=== PATIENT | female | born 1995 | race Caucasian/White ===

== ENCOUNTER → 2019-06-19 | Outpatient (CLI) | payer BC, MEDICAID ==
--- NOTE | 2019-06-19 12:37 | Diagnostic Imaging Report ---
INDICATION: dating. FINDINGS: The uterus measures 7.8 x 2.6 x 4.2 cm. Endometrium is 11 mm in thickness. No myometrial mass is seen. There is no evidence of intrauterine gestational sac. Adnexal evaluation demonstrates both ovaries to contain follicles. There is a left ovarian cyst measuring 13 mm in size. There is blood flow to both ovaries. Trace free fluid in the endocervical and endometrial canal is noted. No free fluid in the pelvis is seen. IMPRESSION: No evidence of intrauterine or ectopic . There is a small left ovarian cyst. Dictated by: Dictated on workstation # [id number]
== END ==
LOC: RAD 09:41
PROVIDERS: ATTEND Family Medicine
DX: Z34.90 Encounter for supervision of normal pregnancy, unspecified, unspecified trimester (principal); Z3A.00 Weeks of gestation of pregnancy not specified
CPT/HCPCS: 76801; 76817

== ENCOUNTER → 2019-09-22 | Outpatient (CLI) | payer BC ==
--- NOTE | 2019-09-22 11:09 | Diagnostic Imaging Report ---
INDICATION: dating. FINDINGS: Uterus measures 7.0 x 4.2 x 5.1 cm. There is an intrauterine gestational sac containing a pole. [place]-rump length measurement is consistent with approximately 6 weeks 5 days gestation. heart rate was recorded at 126 bpm. No genet-gestational sac hemorrhage is detected. Left adnexa is unremarkable. Right adnexa does demonstrate 2.9 x 2.3 cm cyst involving the right ovary. There is no free fluid. IMPRESSION: 1. Single live IUP of approximately 6 weeks 5 days gestational age. Estimated date of confinement sonographically is 05/12/2020. 2. 2.9 cm right ovarian cyst. Dictated by: Dictated on workstation # [id number]
== END ==
LOC: RAD 09:42
PROVIDERS: ATTEND Family Medicine
DX: Z36.9 Encounter for antenatal screening, unspecified (principal); Z3A.01 Less than 8 weeks gestation of pregnancy
CPT/HCPCS: 76801; 76817

== ENCOUNTER 2019-11-19 17:51 | Emergency (ER) | payer BC ==
[~2019-11-19] VITALS: Ht 160 cm; Wt 83.0 kg
[2019-11-19 17:57] VITALS: BP 140/58
--- OUTSIDE RECORDS SUMMARY | 2019-11-19 17:57 | XMS REPORT ---
Author Author Karine Rodriguez Doctor Organization [facility] Address Unknown Phone Unavailable Care Team Providers Care Manager Field Investigations Name Role Phone Migration, Doctor Unavailable Unavailable PROBLEMS Type Condition ICD9-CM Code WCO76-ST Code Onset Dates Condition S tatus SNOMED Code Problem Unspecified pruritic disorder 698.9 Active 244497313 Problem Scabies 133.0 Active 318570844 ALLERGIES No Information ENCOUNTERS Encounter Location Date Diagnosis [facility] [address] [facility] [id number] [address] [place] [phone] Oct, [facility] [address] [facility] [id number] [address] [place] [phone] Oct, [facility] [address] [id number] [address] [place] [phone] Mar, [facility] [address] [id number] [address] [place] [phone] Dec, [facility] [address] [facility] [id number] [address] [place] [phone] Oct, [facility] [address] [facility] [id number] [address] [place] [phone] Jul, [facility] [address] [id number] [address] [place] [phone] May, [facility] [address] [id number] [address] [place] [phone] May, [facility] [address] [facility] [id number] [address] [place] [phone] May, [facility] [address] [facility] [id number] [address] [place] [phone] Apr, [facility] [address] [facility] [id number] [address] [place] [phone] Apr, [facility] [address] [facility] [id number] [address] [place] [phone] Apr, [facility] [address] [facility] [id number] [address] [place] [phone] Apr, [facility] [address] [facility] [id number] [address] [place] [phone] Feb, IMMUNIZATIONS No Known Immunizations SOCIAL HISTORY Never Assessed REASON FOR VISIT [facility] PLAN OF CARE VITAL SIGNS MEDICATIONS Medication Instructions Dosage Frequency Start Date End Date Duration S tatus Elimite 5 % apply from head to s oles of feet by Topical route once 1 time per week leave on for 8-14 hours and then wash thoroughly for 2 dose(s) Oct, Active Ranitidine HCl 150 mg 1 tablet by Oral route 2 times per day Mar, Active Loratadine 10 mg 1 tablet by Oral rou te 1 time per day for itching or allergy sx Mar, Active Medrol 4 mg 84 mg by Oral route 1 time per day as directed Mar, Active RESULTS No Results PROCEDURES No Known procedures INSTRUCTIONS MEDICATIONS ADMINISTERED No Known Medications
--- OUTSIDE RECORDS SUMMARY | 2019-11-19 17:57 | XMS REPORT ---
Author Author Karine Rodriguez Doctor Organization [facility] Address Unknown Phone Unavailable Care Team Providers Care Cement Fittings Maker Name Role Phone Migration, Doctor Unavailable Unavailable PROBLEMS Type Condition ICD9-CM Code ETL79-LT Code Onset Dates Condition S tatus SNOMED Code Problem Unspecified pruritic disorder 698.9 Active 721831025 Problem Scabies 133.0 Active 242439385 ALLERGIES No Information ENCOUNTERS Encounter Location Date Diagnosis [facility] [address] [id number] [address] [place] [phone] Oct, [facility] [address] [id number] [address] [place] [phone] Oct, [facility] [address] [id number] [address] [place] [phone] Mar, [facility] [address] [id number] [address] [place] [phone] Dec, [facility] [address] [id number] [address] [place] [phone] Oct, [facility] [address] [id number] [address] [place] [phone] Jul, [facility] [address] [id number] [address] [place] [phone] May, [facility] [address] [id number] [address] [place] [phone] May, [facility] [address] [id number] [address] [place] [phone] May, [facility] [address] [id number] [address] [place] [phone] Apr, [facility] [address] [id number] [address] [place] [phone] Apr, [facility] [address] [id number] [address] [place] [phone] Apr, [facility] [address] [id number] [address] [place] [phone] Apr, [facility] [address] [id number] [address] [place] [phone] Feb, IMMUNIZATIONS No Known Immunizations SOCIAL HISTORY Never Assessed REASON FOR VISIT PLAN OF CARE VITAL SIGNS Height 64 in 2012-01-02 Weight 148.19 lbs 2012-01-02 Temperature 98.1 degrees Fahrenheit 2012-01-02 Heart Rate 84 bpm 2012-01-02 Respiratory Rate 16 2012-01-02 Blood pressure systolic 106 mmHg 2012-01-02 Blood pressure diastolic 64 mmHg 2012-01-02 MEDICATIONS Unknown Medications RESULTS No Results PROCEDURES No Known procedures INSTRUCTIONS MEDICATIONS ADMINISTERED No Known Medications
--- OUTSIDE RECORDS SUMMARY | 2019-11-19 17:57 | XMS REPORT ---
Author Author Karine Rodriguez Doctor Organization [facility] Address Unknown Phone Unavailable Care Team Providers Care Can Bander Operator Name Role Phone Migration, Doctor Unavailable Unavailable PROBLEMS Type Condition ICD9-CM Code WFX79-BD Code Onset Dates Condition S tatus SNOMED Code Problem Unspecified pruritic disorder 698.9 Active 407986575 Problem Scabies 133.0 Active 424132521 ALLERGIES No Information ENCOUNTERS Encounter Location Date Diagnosis [facility] [place] [address] [facility] [id number] [address] [place] [phone] Oct, [facility] [place] [address] [facility] [id number] [address] [place] [phone] Oct, [facility] [place] [address] [id number] [address] [place] [phone] Mar, [facility] [place] [address] [id number] [address] [place] [phone] Dec, [facility] [place] [address] [facility] [id number] [address] [place] [phone] Oct, [facility] [place] [address] [facility] [id number] [address] [place] [phone] Jul, [facility] [place] [address] [id number] [address] [place] [phone] May, [facility] [place] [address] [id number] [address] [place] [phone] May, [facility] [place] [address] [facility] [id number] [address] [place] [phone] May, [facility] [place] [address] [facility] [id number] [address] [place] [phone] Apr, [facility] [place] [address] [facility] [id number] [address] [place] [phone] Apr, [facility] [place] [address] [facility] [id number] [address] [place] [phone] Apr, [facility] [place] [address] [facility] [id number] [address] [place] [phone] Apr, [facility] [place] [address] [facility] [id number] [address] [place] [phone] Feb, IMMUNIZATIONS No Known Immunizations SOCIAL HISTORY Never Assessed REASON FOR VISIT [facility] [place] OF CARE VITAL SIGNS MEDICATIONS Unknown Medications RESULTS No Results PROCEDURES No Known procedures INSTRUCTIONS MEDICATIONS ADMINISTERED No Known Medications
--- OUTSIDE RECORDS SUMMARY | 2019-11-19 17:57 | XMS REPORT | Continuity of Care Document ---
Author Organization Unknown Address Unknown Phone Unavailable Allergies There is no data. Medications There is no data. Problems Date Dx Coded Attending Type Code Diagnosis Diagnosed By 06/20/2019 STUART AYALA MD, Ot Z34. 90 ENCNTR FOR SUPRVSN OF NORMAL , 06/20/2019 STUART AYALA MD, Ot Z3A. 00 WEEKS OF GESTATION OF NOT SPEC 07/06/2019 STUART AYALA MD, Ot Z34. 90 ENCNTR FOR SUPRVSN OF NORMAL , 07/06/2019 STUART AYALA MD, Ot Z3A. 00 WEEKS OF GESTATION OF NOT SPEC 09/27/2019 STUART AYALA MD, Ot Z36. 9 ENCOUNTER FOR SCREENING, UNSPE 09/27/2019 STUART AYALA MD, Ot Z3A. 01 LESS THAN 8 WEEKS GESTATION OF 10/09/2019 STUART AYALA MD, Ot Z36. 9 ENCOUNTER FOR SCREENING, UNSPE 10/09/2019 STUART AYALA MD, Ot3A. 01 LESS THAN 8 WEEKS GESTATION OF 10/30/2019 STUART AYALA MD, Ot Z34. 90 ENCNTR FOR SUPRVSN OF NORMAL , 10/30/2019 STUART AYALA MD, Ot Z3A. 00 WEEKS OF GESTATION OF NOT SPEC 10/30/2019 STUART AYALA MD, Ot Z36. 9 ENCOUNTER FOR SCREENING, UNSPE 10/30/2019 STUART AYALA MD, Ot Z3A. 01 LESS THAN 8 WEEKS GESTATION OF Procedures There is no data. Results There is no data. Encounters ACCT No. Visit Date/Time Discharge Status Pt. Type Provider Facility Loc./Unit Complaint [id number] 09/22/2019 10:00:00 020 23:59:59 [facility] Outpatient STUART AYALA MD [facility] DATING [id number] 06/19/2019 09:41:00 019 23:59:59 [facility] Outpatient [facility] TYLER, STUART [facility] RAD DATING
--- OUTSIDE RECORDS SUMMARY | 2019-11-19 17:57 | XMS REPORT ---
Author Author Karine Rodriguez Doctor Organization [facility] Address Unknown Phone Unavailable Care Team Providers Care Transit Planning Manager Name Role Phone Migration, Doctor Unavailable Unavailable PROBLEMS Type Condition ICD9-CM Code PFU56-OR Code Onset Dates Condition S tatus SNOMED Code Problem Unspecified pruritic disorder 698.9 Active 054147370 Problem Scabies 133.0 Active 504380791 ALLERGIES No Information ENCOUNTERS Encounter Location Date Diagnosis [facility] [address] [facility] [id number] [address] [place] [phone] Oct, [facility] [address] [facility] [id number] [address] [place] [phone] Oct, [facility] [address] [id number] [address] [place] [phone] Mar, [facility] [address] [id number] [address] [place] [phone] Dec, [facility] [address] [facility] [id number] [address] [place] [phone] Oct, [facility] [address] [facility] [id number] [address] [place] [phone] Jul, [facility] [address] [id number] [address] [place] [phone] May, [facility] [address] [id number] [address] [place] [phone] May, [facility] [address] [facility] [id number] [address] [place] [phone] May, [facility] [address] [facility] [id number] [address] [place] [phone] Apr, [facility] [address] [facility] [id number] [address] [place] [phone] Apr, [facility] [address] [facility] [id number] [address] [place] [phone] Apr, [facility] [address] [facility] [id number] [address] [place] [phone] Apr, [facility] [address] [facility] [id number] [address] [place] [phone] Feb, IMMUNIZATIONS No Known Immunizations SOCIAL HISTORY Never Assessed [place] [facility] [place] VITAL SIGNS MEDICATIONS Unknown Medications RESULTS No Results PROCEDURES No Known procedures INSTRUCTIONS MEDICATIONS ADMINISTERED No Known Medications
--- NOTE | 2019-11-19 18:01 | ED Abdominal Pain ---
General Chief Complaint: Abdominal/GI Problems Stated Complaint: ABD PAIN; 15 WKS PREG Source of Information: Patient, RN/MD Exam Limitations: No Limitations History of Present Illness Date Seen by Provider: November 19, 2019 Time Seen by Provider: 17:45 Initial Comments This patient is a 23-year-old female that presents to the emergency department complaining of abdominal pain. Patient states it only hurts when she rolls over. Patient states she is 15 weeks she's noticed that mending off and on for the past couple days states she just lays a certain way for. Time is fine but she rolls over suddenly initial has some pain for a short period of time patient denies any other problems denies fever denies nausea vomiting diarrhea. States her normal bowel movement this afternoon. Timing/Duration: 4-6 Hours Severity/Quality: Mild Location: Suprapubic Radiation: No Radiation Allergies and Home Medications Allergies Coded Allergies: No Known Drug Allergies (Unverified , 11/19/19) Patient Home Medication List Home Medication List Reviewed: Yes Review of Systems Review of Systems Constitutional: No no symptoms reported; see HPI; No chills, No diaphoresis, No dizziness, No fever, No malaise, No weakness, No weight gain, No weight loss, No other EENTM: No No Symptoms Reported, No See HPI, No Blurred Vision, No Double Vision, No Eye Pain, No Eye Tearing, No Ear Drainage, No Ear Pain, No Mouth Pain, No Mouth Swelling, No Nose Congestion, No Nose Pain, No Throat Pain, No Throat Swelling, No Other Respiratory: Denies No Symptoms Reported, Denies See HPI, Denies Cough, Denies Orthopnea, Denies Shortness of Air, Denies SOA With Exertion, Denies SOA at Rest, Denies Stridor, Denies Wheezing, Denies Other Cardiovascular: Denies No Symptoms Reported, Denies See HPI, Denies Chest Pain, Denies Edema, Denies Irregular Heart Rate, Denies Lightheadedness, Denies Palpitations, Denies Syncope, Denies Other Gastrointestinal: Denies No Symptoms Reported; See HPI; Denies Abdomen Distended; Abdominal Pain; Denies Blood Streaked Stools, Denies Constipated, Denies Diarrhea, Denies Difficulty Swallowing, Denies Nausea, Denies Poor Appetite, Denies Poor Fluid Intake, Denies Rectal Bleeding, Denies Vomiting, Denies Other Musculoskeletal: No no symptoms reported, No see HPI, No back pain, No gout, No joint pain, No joint swelling, No muscle pain, No muscle stiffness, No muscle cramps, No muscle twitching, No muscle weakness, No neck pain, No other Skin: No no symptoms reported, No see HPI, No change in color, No change in hair/nails, No dryness, No hx of skin cancer, No lesions, No lumps, No pruritus, No rash, No other All Other Systems Reviewed Negative Unless Noted: Yes Physical Exam Vital Signs Vital Signs - First Documented 11/19/19 17:57 Temp 36.4 Pulse 84 Resp 16 B/P (MAP) 140/58 (85) Pulse Ox 99 Capillary Refill : Height/Weight/BMI Height: '" Weight: lbs. oz. kg; BMI Method: General Appearance: WD/WN, no apparent distress HEENT: PERRL/EOMI, normal ENT inspection, TMs normal, pharynx normal Neck: non-tender, full range of motion, supple, normal inspection Respiratory: chest non-tender, lungs clear, normal breath sounds, no respiratory distress, no accessory muscle use Cardiovascular: normal peripheral pulses, regular rate, rhythm, no edema, no gallop, no JVD, no murmur Gastrointestinal: normal bowel sounds, non tender, soft, no organomegaly, no pulsatile mass Skin: normal color, warm/dry Progress/Results/Core Measures Results/Orders Lab Results Laboratory Tests Test 11/19/19 17:55 Range/Units Urine Color YELLOW Urine Clarity CLEAR Urine pH 5.5 5-9 Urine Specific [place] >=1.030 1.016-1.022 Urine Protein NEGATIVE NEGATIVE Urine Glucose (UA) NEGATIVE NEGATIVE Urine Ketones NEGATIVE NEGATIVE Urine Nitrite NEGATIVE NEGATIVE Urine Bilirubin NEGATIVE NEGATIVE Urine Urobilinogen 0.2 < = 1.0 MG/DL Urine Leukocyte Esterase NEGATIVE NEGATIVE Urine RBC (Auto) NEGATIVE NEGATIVE Urine RBC NONE /HPF Urine WBC 0-2 /HPF Urine Squamous Epithelial Cells 10-25 H /HPF Urine Crystals NONE /LPF Urine Bacteria FEW H /HPF Urine Casts NONE /LPF Urine Mucus MODERATE H /LPF Urine Culture Indicated NO My Orders Orders - NIKI SPAULDING MD Urinalysis (11/19/19 17:58) Vital Signs/I&O 11/19/19 17:57 Temp 36.4 Pulse 84 Resp 16 B/P (MAP) 140/58 (85) Pulse Ox 99 Progress Progress Note : Time: 18:21 Progress Note heart tones 150. Negative urinalysis. Patient presents with round ligament pain. Patient given instructions patient follow-up with PCP in 2-3 days or [facility]. Tylenol as needed for discomfort. Departure Impression Primary Impression: Round ligament pain Disposition: 01 HOME, SELF-CARE Condition: Stable Departure-Patient Inst. Decision time for Depature: 18:21 Referrals: STUART AYALA MD (PCP/Family) Primary Care Physician Patient Instructions: No Instuctions Given Add. Discharge Instructions: Heating pad when necessary is needed. Resting on the left side pain and discomfort. Follow-up with PCP or [facility] in 3-5 days. Follow as needed for pain All discharge instructions reviewed with patient and/or family. Voiced understanding. NIKI SPAULDING MD November 19, 2019 18:01
[2019-11-19 18:10] LABS: BACTERIA,URINE FEW /HPF; BILIRUBIN,URINE NEGATIVE (NEGATIVE); CLARITY,URINE CLEAR; COLOR,URINE YELLOW; GLUCOSE, URINE (UA) NEGATIVE (NEGATIVE); KETONES,URINE NEGATIVE (NEGATIVE); LEUKOCYTE ESTERASE ,URINE NEGATIVE (NEGATIVE); NITRITE,URINE NEGATIVE (NEGATIVE); PH,URINE 5.5 (5-9); PROTEIN,URINE NEGATIVE (NEGATIVE); WBC,URINE 0-2 /HPF
== END 2019-11-19 18:24 | disposition home or self-care (01) ==
LOC: EDUNIT# 17:51 → ER FS 17:53
DX: O26.892 Other specified pregnancy related conditions, second trimester (principal); R10.2 Pelvic and perineal pain; Z3A.15 15 weeks gestation of pregnancy
CPT/HCPCS: 81000

== ENCOUNTER → 2019-12-11 | Outpatient (CLI) | payer BC, MEDICAID ==
--- NOTE | 2019-12-11 14:57 | Diagnostic Imaging Report ---
INDICATION: survey. TECHNIQUE: Multiple real-time grayscale images were obtained over the gravid uterus. COMPARISON: 09/22/2019. FINDINGS: survey. There is a single live fetus in a cephalic presentation. heart rate was recorded at 152 bpm. Placenta is anterior. No previa is identified. Amniotic fluid volume is normal. kidneys, bladder and stomach are unremarkable. brain is unremarkable. There is a four-chamber heart. There is a three-vessel cord with normal insertion. spine is somewhat limited in evaluation due to lie. Maternal adnexa was not evaluated. Biometrical measurements are as follows: Biparietal 4.55 cm, age 19 weeks 6 days. Head circumference 16.05 cm, age 19 weeks 0 days. Abdominal circumference 12.76 cm, age 18 weeks 3 days. Femur length 2.77 cm, age 18 weeks 4 days. Sonographic estimate age: 19 weeks 0 days. Sonographic estimated date of delivery: 05/24/2020. Estimated Weight: 242 gm (+/- 35 gm). LMP percentile: 19%. heart rate: 152 beats per minute. number: 1 of 1. IMPRESSION: Single live IUP 19 weeks gestational age compared with EDC of 05/12/2020 on prior ultrasound of 09/22/2019. survey is unremarkable, although spine evaluation is somewhat limited due to position. Dictated by: Dictated on workstation # [id number]
== END ==
LOC: RAD 10:32
PROVIDERS: ATTEND Family Medicine
DX: Z34.92 Encounter for supervision of normal pregnancy, unspecified, second trimester (principal); Z3A.19 19 weeks gestation of pregnancy
CPT/HCPCS: 76805

== ENCOUNTER 2020-05-11 18:07 | Outpatient (CLI) | payer BC, MEDICAID ==
[~2020-05-11] VITALS: Ht 160 cm; Wt 103.5 kg
--- NOTE | 2020-05-11 17:50 | NUR ---
DRU PATTERSON presented to unit via ambulation from ED, accompanied by s/o, with c/o lower abd pain today. Pt. weighed, gowned, voided, and to bed. EFHM and TOCO applied, VS taken. Pt. oriented to bed controls, call light, TV, heat, and A/C controls.
--- NOTE | 2020-05-11 18:00 | NUR ---
reports c/o lower abd pain all day today, rating @ 9 on 1-10 scale. pain increases with ambulation. unable to time- poor historian. denies vaginal bleeding, leaking fluid @ time. +FM. Addendum: 05/11/20 at 1851 by SHELBY SIMMONS RN pt smiling, laughing.
[2020-05-11 18:04] VITALS: BP 136/80
[2020-05-11 18:16] VITALS: BP 136/80
[2020-05-11 18:18] LABS: BILIRUBIN,URINE NEGATIVE (NEGATIVE); CLARITY,URINE CLEAR; COLOR,URINE YELLOW; GLUCOSE, URINE (UA) NEGATIVE (NEGATIVE); KETONES,URINE NEGATIVE (NEGATIVE); LEUKOCYTE ESTERASE ,URINE NEGATIVE (NEGATIVE); NITRITE,URINE NEGATIVE (NEGATIVE); PH,URINE 6.5 (5-9); PROTEIN,URINE NEGATIVE (NEGATIVE)
--- NOTE | 2020-05-11 18:20 | NUR ---
SVE closed, thick, anterior and ballotable.
[2020-05-11 18:27] LABS: BACTERIA,URINE TRACE /HPF
--- NOTE | 2020-05-11 18:34 | NUR ---
was called with UA, SVE and monitor tracing. discharge orders received.
--- NOTE | 2020-05-11 18:48 | NUR ---
monitors dc'd. tracing reviewed. FHR 135. accels present. mild ctx's q 2-7 mins with 80-290 sec duration present. reactive NST noted.
--- NOTE | 2020-05-11 18:50 | NUR ---
dismissal paperwork reviewed, verbalizes understanding. signature page signed, placed on chart. instructed to follow up as scheduled. increase daily water intake.
--- NOTE | 2020-05-11 18:55 | NUR ---
pt ambulating to private vehicle with s/o @ side. no sx's of distress noted.
--- NOTE | 2020-05-13 09:16 | Physician Query-Final Dx ---
DARVIN MULLINS 05/13/20 0916: Clinic Account Progress/Dx Physician Query: Please give diagnosis Please include # weeks gestation Date of Service May 11, 2020 at 18:07 STUART AYALA MD 05/15/20 0644: Clinic Account Progress/Dx DIAGNOSIS: Diagnosis 1. IUP at 39 weeks, non labor DARVIN MULLINS May 13, 2020 09:16 STUART AYALA MD May 15, 2020 06:44
== END 2020-05-11 18:55 | disposition home or self-care (01) ==
LOC: LDRP 18:07 → WSo 18:07
PROVIDERS: ATTEND Family Medicine
DX: O26.899 Other specified pregnancy related conditions, unspecified trimester (principal)
CPT/HCPCS: 81000; 87088; G0463; 99213

== ENCOUNTER 2020-05-20 18:40 | Inpatient (IN) | payer BC, MEDICAID ==
[~2020-05-20] VITALS: Ht 160 cm; Wt 106.0 kg
--- NOTE | 2020-05-20 19:00 | NUR ---
DRU PATTERSON presented to unit via ambulatory from ED, accompanied by adult male, with c/o INDUCTION. DRU PATTERSON weighed, gowned, voided, and to bed. EFHM and TOCO applied, VS taken. DRU PATTERSON oriented to bed controls, call light, TV, heat, and A/C controls. above and further assessments completed per this rn.
[2020-05-20] MEDS ORDERED: D5 LR IV SOLUTION 1,000 ML IV ONE (19:12)
[2020-05-20] MEDS ORDERED: LACTATED RINGERS 1,000 ML IV SCH (19:42)
[2020-05-20] MEDS ORDERED: TERBUTALINE INJ 1 MG/ML (BRETHINE) AMP SC PRN (19:45)
[2020-05-20] MEDS ORDERED: MISOPROSTOL 100 MCG (CYTOTEC) TAB PO NR (19:45)
[2020-05-20] MEDS ORDERED: BUTORPHANOL INJ 2 MG/ML (STADOL) VIAL IV PRN (19:45)
[2020-05-20] MEDS ORDERED: MINERAL OIL CONCENTRATE 99.9% 15 ML UDC TOP PRN (19:45)
[2020-05-20 20:00] VITALS: BP 140/80
[2020-05-20] MEDS ORDERED: ZOLPIDEM 5 MG (AMBIEN) TAB PO NR (20:00)
[2020-05-20 20:10] LABS: BASOPHILS % (AUTO) 0 % (0-10); EOSINOPHILS # (AUTO) 0.1 10^3/uL (0.0-0.3); EOSINOPHILS % (AUTO) 1 % (0-10); HEMATOCRIT 32 % (35-52); HEMOGLOBIN 10.6 g/dL (11.5-16.0); LYMPHOCYTES # (AUTO) 1.8 10^3/uL (1.0-4.0); LYMPHOCYTES % (AUTO) 17 % (12-44); MEAN CORPUSCULAR HEMOGLOBIN 30 pg (25-34); MEAN CORPUSCULAR HGB CONC 33 g/dL (32-36); MEAN CORPUSCULAR VOLUME 91 fL (80-99); MEAN PLATELET VOLUME 9.6 fL (9.0-12.2); MONOCYTES # (AUTO) 0.6 10^3/uL (0.0-1.0); MONOCYTES % (AUTO) 6 % (0-12); NEUTROPHILS # (AUTO) 7.6 10^3/uL (1.8-7.8); NEUTROPHILS % (AUTO) 75 % (42-75); PLATELET COUNT 306 10^3/uL (130-400); WHITE BLOOD COUNT 10.1 10^3/uL (4.3-11.0)
[2020-05-20] MEDS: D5 LR IV SOLUTION 1,000 ML IV SCH (20:16)
[2020-05-20 20:17] LABS: BILIRUBIN,URINE NEGATIVE (NEGATIVE); CLARITY,URINE CLEAR; COLOR,URINE YELLOW; GLUCOSE, URINE (UA) NEGATIVE (NEGATIVE); KETONES,URINE NEGATIVE (NEGATIVE); LEUKOCYTE ESTERASE ,URINE NEGATIVE (NEGATIVE); NITRITE,URINE NEGATIVE (NEGATIVE); PH,URINE 6.5 (5-9); PROTEIN,URINE NEGATIVE (NEGATIVE)
[2020-05-20 20:29] LABS: AMORPHOUS SEDIMENT,UR FEW AMOR URATES /LPF; BACTERIA,URINE TRACE /HPF
[2020-05-20 21:00] VITALS: BP 120/74
[2020-05-20] MEDS ORDERED: CATHETER FLUSH 10 ML SYR IV SCH (22:00)
[2020-05-20 23:00] VITALS: BP 122/67
[2020-05-21] VITALS (46 sets, daily range): BP systolic 101–149; BP diastolic 36–105
[2020-05-21] MEDS: MISOPROSTOL 100 MCG (CYTOTEC) TAB PO SCH ×2 (00:17→04:00)
[2020-05-21] MEDS: D5 LR IV SOLUTION 1,000 ML IV SCH ×2 (04:00→11:16)
[2020-05-21] MEDS ORDERED: OXYTOCIN PRE-MIX DRIP 500 ML IV SCH ×2 (06:30→18:57)
--- NOTE | 2020-05-21 06:36 | History & Physical-OB ---
OB - Chief Complaint & HPI Date/Time Date of Admission: Date of Admission: May 20, 2020 at 18:40 Date seen by a Provider: May 21, 2020 Time Seen by a Provider: 06:30 Chief Complaint/History OB-Reason for Admission/Chief: Induction of Labor Hx : 1 Hx Para: 0 Expected Date of Delivery: May 12, 2020 Gestational Age in Weeks: 41 Gestational Age in Days: 1 Indication for induction: post dates Admission Nurse Assessment Rev: Yes History of Labs GBS negative at 36 weeks Allergies and Home Medications Allergies Coded Allergies: No Known Drug Allergies (Unverified , 11/19/19) Home Medications No Active Prescriptions or Reported Meds Patient Home Medication List Home Medication List Reviewed: Yes OB - History Hx of Present Care: Yes Ultrasounds: Normal mid trimester US Obstetrical Complications: None Medical Complications: None Delivery History Adverse Rxn to Tranfusion: No Patient Past Medical History no chronic medical problems Social History/Family History Alcohol Use: Denies Use Recreational Drug Use: No 2nd Hand Smoke Exposure: No Immunizations Hepatitis A: Yes Hepatitis B: Yes OB - Admission Exam Physical Exam Vitals: Vital Signs 05/21/20 05/21/20 02:56 05:00 Temp 36.3 Pulse 80 Resp 18 B/P (MAP) 127/74 (91) Pulse Ox 98 O2 Delivery Room Air HEENT: Moist Membranes Heart: Rhythm Normal Lungs: Clear Abdomen: Gravid Cervical Dilatation: None Effacement: 75% Station: -3 Membranes: Intact Accelerations: Accelerations Present Short Term Variability: Present Mcfp Variability: Average (6-25) Contractions on Admission: 6-10 Minutes Apart Intensity: Mild Butterfield Scoring Tool (Modified) Dilation (cm): 0/Closed (0) Effacement (%): 51-79% (2) Descent/Station: -3 (0) Cervix Consistency: Medium(1) Cervix Position: Middle/Mid-Position (1) Butterfield Score: 4 Labs Laboratory Tests Test 05/20/20 19:30 05/20/20 19:54 05/20/20 20:30 Range/Units Urine Color YELLOW Urine Clarity CLEAR Urine pH 6.5 5-9 Urine Specific [place] 1.020 1.016-1.022 Urine Protein NEGATIVE NEGATIVE Urine Glucose (UA) NEGATIVE NEGATIVE Urine Ketones NEGATIVE NEGATIVE Urine Nitrite NEGATIVE NEGATIVE Urine Bilirubin NEGATIVE NEGATIVE Urine Urobilinogen 0.2 < = 1.0 MG/DL Urine Leukocyte Esterase NEGATIVE NEGATIVE Urine RBC (Auto) NEGATIVE NEGATIVE Urine RBC NONE /HPF Urine WBC 2-5 /HPF Urine Squamous Epithelial Cells 5-10 /HPF Urine Crystals PRESENT H /LPF Urine Amorphous Sediment FEW KIESHA URATES H /LPF Urine Bacteria TRACE /HPF Urine Casts NONE /LPF Urine Mucus SMALL H /LPF Urine Culture Indicated NO White Blood Count 10.1 4.3-11.0 10^3/uL Red Blood Count 3.57 L 3.80-5.11 10^6/uL Hemoglobin 10.6 L 11.5-16.0 g/dL Hematocrit 32 L 35-52 % Mean Corpuscular Volume 91 80-99 fL Mean Corpuscular Hemoglobin 30 25-34 pg Mean Corpuscular Hemoglobin Concent 33 32-36 g/dL Red Cell Distribution Width 13.5 10.0-14.5 % Platelet Count 306 130-400 10^3/uL Mean Platelet Volume 9.6 9.0-12.2 fL Immature Granulocyte % (Auto) 1 % Neutrophils (%) (Auto) 75 42-75 % Lymphocytes (%) (Auto) 17 12-44 % Monocytes (%) (Auto) 6 0-12 % Eosinophils (%) (Auto) 1 0-10 % Basophils (%) (Auto) 0 0-10 % Neutrophils # (Auto) 7.6 1.8-7.8 10^3/uL Lymphocytes # (Auto) 1.8 1.0-4.0 10^3/uL Monocytes # (Auto) 0.6 0.0-1.0 10^3/uL Eosinophils # (Auto) 0.1 0.0-0.3 10^3/uL Basophils # (Auto) 0.0 0.0-0.1 10^3/uL Immature Granulocyte # (Auto) 0.1 0.0-0.1 10^3/uL OB - Assessment/Plan/Diagnosis Assessment Assessment: induction of labor (at 41w1d) Admission Dx IUP at 41w1d gestation Admission Status: Inpatient Order (span 2 midnights) Reason for Inpatient Admission: cytotec induction Plan Plan: Induction Induction Method: per Misoprostol Protocol Other Plan -epidural planned -pitocin as needed STUART AYALA MD May 21, 2020 06:36
[2020-05-21] MEDS ORDERED: FLU QUADRIvalent (3YOA+) 60 mcg/0.5 ml 2020-21 (AFLURIA) IM ONE (07:00)
--- NOTE | 2020-05-21 09:56 | NUR ---
Dr Mccray, OB extraction operator has been notified of pt/current report at this time.
--- NOTE | 2020-05-21 10:08 | NUR ---
Dr Diop called this RN for pt update. Pitocin rate at 10. Uc pattern, FHT reactive, pt still not feeling UC. UC palpate mild-moderate. Dr Diop asks RN to preform SVE in approx 30 min. RN will SVE and update Dr Diop with current SVE.
--- NOTE | 2020-05-21 10:46 | NUR ---
Rn updated Dr Diop on pt report. SVE 0.5 cm, thick, posterior. UC q 1-2.5 min, pt states she doesnt feel anything. Pitocin rate is currently at 14. Dr Diop wants RN to continue to increase pitocin and recheck pt in approx 2 hours. RN will keep Dr up to date.
--- NOTE | 2020-05-21 12:45 | NUR ---
Dr Diop updated on pt report. Current SVE 1cm, thick with tunneling, posterior but more midline/easier to reach than last SVE. This RN was unable to determine if SVE to head since cervix is so thick. Was an easier exam than the last however. Dr Diop gives RN okay to increase pitocin until reaching 30 milliunits/hr.
--- NOTE | 2020-05-21 13:45 | Labor Progress Note ---
Labor Progress Note Labor Progress Note Date Seen by Provider: May 21, 2020 Time Seen by Provider: 13:30 Subjective: Pt denies complaints. Tolerating labor. Not requiring pain medications Objective: Cervical exam: fingertip Consistency: firm Position: -3 Presentation: vertex heart tones: 140 beats per minute, good variability, reactive strip Tocometer: 3 ctx/10 minutes Assessment/Plan: Karine Anderson is a (24 /Para 1 / 0,Gestational Age (wks)41 herein labor -Her membranes are still intact -Pitocin is at 24 mU/m -She has available Stadol 1 mg if needed for discomfort. Vitals - Labs Vital Signs - I&O Vital Signs Date Time Temp Pulse Resp B/P (MAP) Pulse Ox O2 Delivery O2 Flow Rate FiO2 05/21/20 10:45 Room Air 05/21/20 10:30 36.4 83 16 122/65 (84) 98 Room Air 05/21/20 10:15 88 99 Room Air 05/21/20 10:00 88 127/75 (92) 98 Room Air 05/21/20 09:45 89 136/83 (100) 98 Room Air 05/21/20 09:30 90 137/87 (104) 99 Room Air 05/21/20 09:15 36.2 82 16 120/67 (84) Room Air 05/21/20 09:00 72 109/63 (78) Room Air 05/21/20 08:45 103 121/71 (88) Room Air 05/21/20 08:30 96 121/73 (89) Room Air 05/21/20 07:50 36.3 86 18 123/75 (91) 98 Room Air 05/21/20 07:00 36.4 76 18 126/68 (87) 99 Room Air 05/21/20 06:00 18 Room Air 05/21/20 05:00 80 18 127/74 (91) Room Air 05/21/20 04:00 83 18 128/60 (82) Room Air 05/21/20 03:00 80 18 102/57 (72) Room Air 05/21/20 02:56 36.3 103 18 98 Room Air 05/21/20 02:00 103 18 110/72 (85) Room Air 05/21/20 01:00 83 18 105/56 (72) Room Air 05/21/20 00:00 73 18 111/53 (72) Room Air 05/20/20 23:00 75 18 122/67 (85) Room Air 05/20/20 22:00 Room Air 05/20/20 21:00 91 18 120/74 (89) Room Air 05/20/20 20:00 36.3 99 18 140/80 (100) Room Air Labs Laboratory Tests 05/20/20 19:30: Urine Color YELLOW, Urine Clarity CLEAR, Urine pH 6.5, Urine Specific [place] 1.020, Urine Protein NEGATIVE, Urine Glucose (UA) NEGATIVE, Urine Ketones NE GATIVE, Urine Nitrite NEGATIVE, Urine Bilirubin NEGATIVE, Urine Urobilinogen 0.2, Urine Leukocyte Esterase NEGATIVE, Urine RBC (Auto) NEGATIVE, Urine RBC NONE, Urine WBC 2-5, Urine Squamous Epithelial Cells 5-10, Urine Crystals PRESENTH, Urine Amorphous Sediment FEW KIESHA URATESH, Urine Bacteria TRACE, Urine Casts NONE, Urine Mucus SMALLH, Urine Culture Indicated NO 05/20/20 19:54: White Blood Count 10.1, Red Blood Count 3.57L, Hemoglobin 10.6L, Hematocrit 32L, Mean Corpuscular Volume 91, Mean Corpuscular Hemoglobin 30, Mean Corpuscular Hemoglobin Concent 33, Red Cell Distribution Width 13.5, Platelet Count 306, M pasha Platelet Volume 9.6, Immature Granulocyte % (Auto) 1, Neutrophils (%) (Auto) 75, Lymphocytes (%) (Auto) 17, Monocytes (%) (Auto) 6, Eosinophils (%) (Auto) 1, Basophils (%) (Auto) 0, Neutrophils # (Auto) 7.6, Lymphocytes # (Auto) 1.8, Monocytes # (Auto) 0.6, Eosinophils # (Auto) 0.1, Basophils # (Auto) 0.0, Immature Granulocyte # (Auto) 0.1 05/20/20 20:30: STUART AYALA MD May 21, 2020 13:45
--- NOTE | 2020-05-21 16:40 | NUR ---
Dr Diop at bedside. sVE no change. IV infiltrated, pitocin and iv fluids turned off. Jadon discusses plan of pt care, gives options, risks/benefits of all options. Pt opts for CS.
[2020-05-21] MEDS ORDERED: LACTATED RINGERS 1,000 ML IV PRN (16:50)
[2020-05-21] MEDS ORDERED: FAMOTIDINE 20MG/2ML IV (PEPCID) ONE (16:54)
[2020-05-21] MEDS ORDERED: CITRIC ACID/SOB CIT (BICITRA) 30 ML UDC ONE (16:54)
[2020-05-21] MEDS ORDERED: METOCLOPRAMIDE INJ 10 MG/2 ML (REGLAN) ONE (16:54)
[2020-05-21] MEDS ORDERED: ceFAZolin 2 GM IV Premixed 50 ML ONE (16:54)
--- NOTE | 2020-05-21 16:54 | Labor Progress Note ---
Labor Progress Note Labor Progress Note Date Seen by Provider: May 21, 2020 Time Seen by Provider: 16:40 Subjective: Patient continues to be an labor. Pitocin was at 24 mU/m. IV has infiltrated Objective: Cervical exam: fingertip internal os is closed Consistency: firm Position: ballotable Presentation:vertex heart tones: 145 beats per minute, good variability, reactive strip Tocometer: 3ctx/10 minutes Assessment/Plan: Karine Anderson is a (24 /Para 1 / 0,Gestational Age (wks)41 -her labor is not progressing and no cervical change despite 3 doses of Cytotec as well as aggressive Pitocin augmentation throughout the day today. -I gave her option of resting and repeating the Cytotec tonight. Based upon her wishes she would not like to chance going through second night of Cytotec and would rather have primary section. She understands that most likely in the future she would have to have repeat section. Dr. Mccray notified and agrees with plan. Surgery crew notified but they are currently in another case. All questions were answered that patient had as well as her boyfriend or father of infant. Vitals - Labs Vital Signs - I&O Vital Signs Date Time Temp Pulse Resp B/P (MAP) Pulse Ox O2 Delivery O2 Flow Rate FiO2 05/21/20 15:00 84 130/68 (88) 100 Room Air 05/21/20 14:45 85 129/65 (86) 100 Room Air 05/21/20 14:30 36.3 81 16 124/63 (83) 98 Room Air 05/21/20 14:15 85 129/65 (86) 98 Room Air 05/21/20 14:00 79 132/80 (97) 99 Room Air 05/21/20 13:45 83 97 Room Air 05/21/20 13:30 36.4 85 16 125/75 (92) 100 Room Air 05/21/20 13:15 83 149/76 (100) Room Air 05/21/20 13:00 84 139/74 (95) Room Air 05/21/20 12:45 95 16 135/76 (95) Room Air 05/21/20 12:30 85 119/61 (80) Room Air 05/21/20 12:15 36.6 82 130/65 (86) Room Air 05/21/20 12:00 76 120/67 (84) Room Air 05/21/20 11:45 90 16 147/77 (100) Room Air 05/21/20 11:30 81 132/74 (93) Room Air 05/21/20 11:15 73 131/75 (93) Room Air 05/21/20 11:00 82 136/79 (98) Room Air 05/21/20 10:45 Room Air 05/21/20 10:30 36.4 83 16 122/65 (84) 98 Room Air 05/21/20 10:15 88 99 Room Air 05/21/20 10:00 88 127/75 (92) 98 Room Air 05/21/20 09:45 89 136/83 (100) 98 Room Air 05/21/20 09:30 90 137/87 (104) 99 Room Air 05/21/20 09:15 36.2 82 16 120/67 (84) Room Air 05/21/20 09:00 72 109/63 (78) Room Air 05/21/20 08:45 103 121/71 (88) Room Air 05/21/20 08:30 96 121/73 (89) Room Air 05/21/20 07:50 36.3 86 18 123/75 (91) 98 Room Air 05/21/20 07:00 36.4 76 18 126/68 (87) 99 Room Air 05/21/20 06:00 18 Room Air 05/21/20 05:00 80 18 127/74 (91) Room Air 05/21/20 04:00 83 18 128/60 (82) Room Air 05/21/20 03:00 80 18 102/57 (72) Room Air 05/21/20 02:56 36.3 103 18 98 Room Air 05/21/20 02:00 103 18 110/72 (85) Room Air 05/21/20 01:00 83 18 105/56 (72) Room Air 05/21/20 00:00 73 18 111/53 (72) Room Air 05/20/20 23:00 75 18 122/67 (85) Room Air 05/20/20 22:00 Room Air 05/20/20 21:00 91 18 120/74 (89) Room Air 05/20/20 20:00 36.3 99 18 140/80 (100) Room Air Labs Laboratory Tests 05/20/20 19:30: Urine Color YELLOW, Urine Clarity CLEAR, Urine pH 6.5, Urine Specific [place] 1.020, Urine Protein NEGATIVE, Urine Glucose (UA) NEGATIVE, Urine Ketones NEGATIVE, Urine Nitrite NEGATIVE, Urine Bilirubin NEGATIVE, Urine Urobilinogen 0.2, Urine Leukocyte Esterase NEGATIVE, Urine RBC (Auto) NEGATIVE, Urine RBC NONE, Urine WBC 2-5, Urine Squamous Epithelial Cells 5-10, Urine Crystals PRESENTH, Urine Amorphous Sediment FEW KIESHA URATESH, Urine Bacteria TRACE, Urine Casts NONE, Urine Mucus SMALLH, Urine Culture Indicated NO 05/20/20 19:54: White Blood Count 10.1, Red Blood Count 3.57L, Hemoglobin 10.6L, Hematocrit 32L, Mean Corpuscular Volume 91, Mean Corpuscular Hemoglobin 30, Mean Corpuscular Hemoglobin Concent 33, Red Cell Distribution Width 13.5, Platelet Count 306, Mean Platelet Volume 9.6, Immature Granulocyte % (Auto) 1, Neutrophils (%) (Auto) 75, Lymphocytes (%) (Auto) 17, Monocytes (%) (Auto) 6, Eosinophils (%) (Auto) 1, Basophils (%) (Auto) 0, Neutrophils # (Auto) 7.6, Lymphocytes # (Auto) 1.8, Monocytes # (Auto) 0.6, Eosinophils # (Auto) 0.1, Basophils # (Auto) 0.0, Immature Granulocyte # (Auto) 0.1 05/20/20 20:30: STUART AYALA MD May 21, 2020 16:54
[2020-05-21] MEDS ORDERED: CITRIC ACID/SOB CIT (BICITRA) 30 ML UDC PO ONE (17:00)
[2020-05-21] MEDS ORDERED: ceFAZolin 2 GM IV Premixed 50 ML IV ONE (17:00)
[2020-05-21] MEDS ORDERED: FAMOTIDINE 20MG/2ML IV (PEPCID) IV ONE (17:00)
[2020-05-21] MEDS ORDERED: METOCLOPRAMIDE INJ 10 MG/2 ML (REGLAN) IV ONE (17:00)
[2020-05-21] MEDS: LACTATED RINGERS 1,000 ML IV PRN ×2 (17:42→18:55)
[2020-05-21] MEDS ORDERED: KETAMINE/NaCl 50 MG/5 ML SYRINGE (ED ONLY) ONE (18:41)
[2020-05-21] MEDS ORDERED: fentaNYL INJECTION 100 MCG/2 ML AMP ONE (18:41)
--- NOTE | 2020-05-21 18:43 | NUR ---
report given to Kalma SAMUEL and [place] MACHINE OPERATOR
[2020-05-21] MEDS ORDERED: BUPIVACAINE 0.25% 30 ML (SENSORCAINE) VIAL ONE (18:50)
--- NOTE | 2020-05-21 18:57 | Progress Note-Pre Operative ---
Pre-Operative Progress Note H&P Reviewed The H&P was reviewed, patient examined and no changes noted. Date Seen by Provider: May 21, 2020 Time Seen by Provider: 17:45 Date H&P Reviewed: May 21, 2020 Time H&P Reviewed: 17:00 Pre-Operative Diagnosis: failure to progress/dilate ATIF MALONE DO May 21, 2020 18:57
[2020-05-21] MEDS ORDERED: morphine INJ 4 MG/ML 1 ML (VIAL/SYRINGE) IVP PRN (19:00)
[2020-05-21] MEDS ORDERED: MEASLES,MUMPS,RUBELLA 1 EA INJ SC SCH (19:00)
[2020-05-21] MEDS ORDERED: TETANUS,DIPTH,PERTUSS P/F (BOOSTRIX) 0.5 ML VIAL IM SCH (19:00)
--- NOTE | 2020-05-21 19:07 | Cesarean Section Operative ---
Procedure Procedure Note Pre-operative Diagnosis: Karine Anderson is a 24 /Para 1 / 0,Gestational Age 41 2/7 weeks, failure to dilate, failed induction Post-operative Diagnosis: same, Persistent OT presentation, hand presentation, macrosomia, CPD Procedure: Primary low transverse section Physician: ATIF MALONE DO Filler Leaf Cutter Long: Soto Diop MD Estimated blood loss: 400 mL Disposition: stable Findings: Viable male , Apgars 9/9, weight 9#, intact placenta, 3vc, normal appearing uterus, tubes, and ovaries. Indications:Karine Anderson is a 24 /Para 1 / 0,Gestational Age 41 2/7 weeks, failure to dilate, failed induction for primary section Procedure Details: The patient was seen in pre-op and the procedure was discussed with the patient in full, including the risks, benefits, and alternatives. All questions were answered. The patient was taken to the operating room and a time out was performed, verifying patient and procedure. After spinal anesthesia was placed by our anesthesia colleagues, the patient was placed in the dorsal supine with leftward tilt for uterine displacement.~ Her abdomen was then prepped and draped in the typical sterile fashion. A Pfannenstiel skin incision was made using a scalpel and carried down through the underlying fascia. The fascia was incised in the midline and tented up using Eric clamps. On both the inferior and superior fascia side the rectus muscle was dissected off bluntly and sharply using Stokes scissors. The peritoneum was identified and entered bluntly in the midline. This was then stretched laterally using manual strength. After entering the abdominal cavity and confirming lack of intraperitoneal adhesions, a large Colton retractor was placed and the lower uterine segment was visualized. A bladder flap was created with the use of Metzenbaum scissors.~ A scalpel was utilized to make a low transverse uterine incision. Amniotomy was performed with an Allis clamp with return of clear fluid. The 's head was grasped and brought to the level of the incision. Fundal pressure was applied and infant was delivered without difficulty. Mouth and nares were suctioned with bulb suction. After the umbilical cord was clamped and cut, the infant was handed off to the pediatric staff. A sample of cord blood was then obtained. The placenta was delivered intact via uterine massage. The uterus was exteriorized and cleared of all clots and debris. The uterine incision was closed using 0 Vicryl in a running locked fashion. A second imbricated layer was placed using 0 Vicryl in a running fashion as well. The uterus was flexed forward and the posterior rectouterine space was inspected and cleared of all clots and debris. Again the hysterotomy site was examined and hemostasis was observed. The bilateral tubes and ovaries appeared normal. The uterus was placed back into the abdominal cavity and abdominal gutters were cleared of all clots and debris. A final check of the uterine incision showed it to be hemostatic. The peritoneum was closed using 3-0 Vicryl in a running fashion. The fascia was closed with 0 Vicryl in a running fashion. The subcutaneous space was hemostati c, and irrigated. The subcutaneous space was closed with 3-0 Vicryl in several single interrupted stitches. The skin was then closed using 4-0 Monocryl in a running subcuticular fashion. The skin edges were reapproximated together and were hemostatic. A pressure dressing was applied. All sponge, lap and needle counts were correct at the end of the procedure per nursing. Vitals - Labs Vital Signs - I&O Vital Signs Date Time Temp Pulse Resp B/P (MAP) Pulse Ox O2 Delivery O2 Flow Rate FiO2 05/21/20 18:45 36.7 91 98 Room Air 05/21/20 18:30 36.7 92 16 126/75 (92) 99 Room Air 05/21/20 16:30 103 141/105 (117) Room Air 05/21/20 16:15 86 136/88 (104) Room Air 05/21/20 16:00 86 132/92 (105) 100 Room Air 05/21/20 15:45 87 16 144/76 (98) 98 Room Air 05/21/20 15:30 36.5 88 149/80 (103) 99 Room Air 05/21/20 15:15 100 143/76 (98) 99 Room Air 05/21/20 15:00 84 130/68 (88) 100 Room Air 05/21/20 14:45 85 129/65 (86) 100 Room Air 05/21/20 14:30 36.3 81 16 124/63 (83) 98 Room Air 05/21/20 14:15 85 129/65 (86) 98 Room Air 05/21/20 14:00 79 132/80 (97) 99 Room Air 05/21/20 13:45 83 97 Room Air 05/21/20 13:30 36.4 85 16 125/75 (92) 100 Room Air 05/21/20 13:15 83 149/76 (100) Room Air 05/21/20 13:00 84 139/74 (95) Room Air 05/21/20 12:45 95 16 135/76 (95) Room Air 05/21/20 12:30 85 119/61 (80) Room Air 05/21/20 12:15 36.6 82 130/65 (86) Room Air 05/21/20 12:00 76 120/67 (84) Room Air 05/21/20 11:45 90 16 147/77 (100) Room Air 05/21/20 11:30 81 132/74 (93) Room Air 05/21/20 11:15 73 131/75 (93) Room Air 05/21/20 11:00 82 136/79 (98) Room Air 05/21/20 10:45 Room Air 05/21/20 10:30 36.4 83 16 122/65 (84) 98 Room Air 05/21/20 10:15 88 99 Room Air 05/21/20 10:00 88 127/75 (92) 98 Room Air 05/21/20 09:45 89 136/83 (100) 98 Room Air 05/21/20 09:30 90 137/87 (104) 99 Room Air 05/21/20 09:15 36.2 82 16 120/67 (84) Room Air 05/21/20 09:00 72 109/63 (78) Room Air 05/21/20 08:45 103 121/71 (88) Room Air 05/21/20 08:30 96 121/73 (89) Room Air 05/21/20 07:50 36.3 86 18 123/75 (91) 98 Room Air 05/21/20 07:00 36.4 76 18 126/68 (87) 99 Room Air 05/21/20 06:00 18 Room Air 05/21/20 05:00 80 18 127/74 (91) Room Air 05/21/20 04:00 83 18 128/60 (82) Room Air 05/21/20 03:00 80 18 102/57 (72) Room Air 05/21/20 02:56 36.3 103 18 98 Room Air 05/21/20 02:00 103 18 110/72 (85) Room Air 05/21/20 01:00 83 18 105/56 (72) Room Air 05/21/20 00:00 73 18 111/53 (72) Room Air 05/20/20 23:00 75 18 122/67 (85) Room Air 05/20/20 22:00 Room Air 05/20/20 21:00 91 18 120/74 (89) Room Air 05/20/20 20:00 36.3 99 18 140/80 (100) Room Air Labs Laboratory Tests 05/20/20 19:30: Urine Color YELLOW, Urine Clarity CLEAR, Urine pH 6.5, Urine Specific [place] 1.020, Urine Protein NEGATIVE, Urine Glucose (UA) NEGATIVE, Urine Ketones NEGATIVE, Urine Nitrite NEGATIVE, Urine Bilirubin NEGATIVE, Urine Urobilinogen 0.2, Urine Leukocyte Esterase NEGATIVE, Urine RBC (Auto) NEGATIVE, Urine RBC NONE, Urine WBC 2-5, Urine Squamous Epithelial Cells 5-10, Urine Crystals PRESENTH, Urine Amorphous Sediment FEW KIESHA URATESH, Urine Bacteria TRACE, Urine Casts NONE, Urine Mucus SMALLH, Urine Culture Indicated NO 05/20/20 19:54: White Blood Count 10.1, Red Blood Count 3.57L, Hemoglobin 10.6L, Hematocrit 32L, Mean Corpuscular Volume 91, Mean Corpuscular Hemoglobin 30, Mean Corpuscular Hemoglobin Concent 33, Red Cell Distribution Width 13.5, Platelet Count 306, Mean Platelet Volume 9.6, Immature Granulocyte % (Auto) 1, Neutrophils (%) (Auto) 75, Lymphocytes (%) (Auto) 17, Monocytes (%) (Auto) 6, Eosinophils (%) (Auto) 1, Basophils (%) (Auto) 0, Neutrophils # (Auto) 7.6, Lymphocytes # (Auto) 1.8, Monocytes # (Auto) 0.6, Eosinophils # (Auto) 0.1, Basophils # (Auto) 0.0, Immature Granulocyte # (Auto) 0.1 05/20/20 20:30: Coronavirus (COVID-19)(PCR) Negative ATIF MALONE DO May 21, 2020 19:07
[2020-05-21] MEDS ORDERED: OXYTOCIN PRE-MIX DRIP 1,000 ML IV ONE (19:20)
[2020-05-21] MEDS ORDERED: PHENYLEPHRINE 100 MCG/ML 10 ML (ANESTHESIA) SYR ONE ×2 (19:20→19:32)
[2020-05-21] MEDS ORDERED: BUPIVACAINE 0.5% 30 ML (SENSORCAINE) VIAL ONE (19:32)
[2020-05-21] MEDS ORDERED: KETOROLAC 30 MG/ML VIAL ONE (19:41)
--- NOTE | 2020-05-21 21:00 | NUR ---
pt moved to 307 from recovery. pt orientated to room. info papers discussed. call light within reach. pericare completed. pt requesting cold tray. one provided. pt denies any other needs. Will continue to monitor.
[2020-05-21] MEDS: DOCUSATE SODIUM 100 MG (COLACE) CAP PO SCH (21:59)
[2020-05-21] MEDS ORDERED: CATHETER FLUSH 10 ML SYR IV SCH (22:00)
--- NOTE | 2020-05-21 23:35 | NUR ---
Pt reports po pain meds are not helping with the pain. iv morphine given.
--- NOTE | 2020-05-22 01:30 | NUR ---
Pt assisted to the bathroom. positive void. Pericare completed, moderate rubra. pt assisted back to bed. RN provided teaching on IS, Encouraged pt to perform IS every 2 hours while awake.
[2020-05-22] MEDS: KETOROLAC 30 MG/ML VIAL IV SCH ×3 (01:40→16:08)
[2020-05-22 02:04] VITALS: BP 121/75
[2020-05-22 05:38] LABS: BASOPHILS % (AUTO) 0 % (0-10); EOSINOPHILS # (AUTO) 0.1 10^3/uL (0.0-0.3); EOSINOPHILS % (AUTO) 0 % (0-10); HEMATOCRIT 27 % (35-52); HEMOGLOBIN 8.8 g/dL (11.5-16.0); LYMPHOCYTES # (AUTO) 1.5 10^3/uL (1.0-4.0); LYMPHOCYTES % (AUTO) 10 % (12-44); MEAN CORPUSCULAR HEMOGLOBIN 30 pg (25-34); MEAN CORPUSCULAR HGB CONC 32 g/dL (32-36); MEAN CORPUSCULAR VOLUME 92 fL (80-99); MEAN PLATELET VOLUME 9.9 fL (9.0-12.2); MONOCYTES # (AUTO) 0.9 10^3/uL (0.0-1.0); MONOCYTES % (AUTO) 7 % (0-12); NEUTROPHILS # (AUTO) 11.7 10^3/uL (1.8-7.8); NEUTROPHILS % (AUTO) 82 % (42-75); PLATELET COUNT 239 10^3/uL (130-400); WHITE BLOOD COUNT 14.2 10^3/uL (4.3-11.0)
[2020-05-22] MEDS: ACETAMINOPHEN 500 MG TAB (TYLENOL) PO SCH ×4 (05:40→23:42)
--- NOTE | 2020-05-22 05:49 | NUR ---
abdominal drsg removed. Pt tolerated well. Telfa adhered to dermabond. RN left in place at this time.
[2020-05-22] MEDS: DOCUSATE SODIUM 100 MG (COLACE) CAP PO SCH ×2 (07:48→21:43)
[2020-05-22 08:04] VITALS: BP 107/65
--- NOTE | 2020-05-22 11:48 | Postpartum Progress Note ---
Post Op Post-operative Day #1 s/p PLTCS Subjective: Patient is without complaints. Ambulating, voiding after jason removed. Tolerating a regular diet without nausea or vomiting. Normal lochia. Pain is well controlled with oral pain medications. Passing flatus. [] feeding. [] Objective: 05/22/20 05/22/20 05/22/20 02:04 07:48 08:04 Temp 36.9 36.9 36.9 Pulse 85 83 Resp 18 16 B/P (MAP) 121/75 (90) 107/65 (79) Pulse Ox 99 97 O2 Delivery Room Air Nasal Cannula 05/22/20 00:00 Intake Total 4150 ml Output Total 650 ml Balance 3500 ml Laboratory Tests Test 05/22/20 05:23 Range/Units White Blood Count 14.2 H 4.3-11.0 10^3/uL Red Blood Count 2.96 L 3.80-5.11 10^6/uL Hemoglobin 8.8 L 11.5-16.0 g/dL Hematocrit 27 L 35-52 % Mean Corpuscular Volume 92 80-99 fL Mean Corpuscular Hemoglobin 30 25-34 pg Mean Corpuscular Hemoglobin Concent 32 32-36 g/dL Red Cell Distribution Width 13.9 10.0-14.5 % Platelet Count 239 130-400 10^3/uL Mean Platelet Volume 9.9 9.0-12.2 fL Immature Granulocyte % (Auto) 1 % Neutrophils (%) (Auto) 82 H 42-75 % Lymphocytes (%) (Auto) 10 L 12-44 % Monocytes (%) (Auto) 7 0-12 % Eosinophils (%) (Auto) 0 0-10 % Basophils (%) (Auto) 0 0-10 % Neutrophils # (Auto) 11.7 H 1.8-7.8 10^3/uL Lymphocytes # (Auto) 1.5 1.0-4.0 10^3/uL Monocytes # (Auto) 0.9 0.0-1.0 10^3/uL Eosinophils # (Auto) 0.1 0.0-0.3 10^3/uL Basophils # (Auto) 0.0 0.0-0.1 10^3/uL Immature Granulocyte # (Auto) 0.1 0.0-0.1 10^3/uL Physical Exam: General - Alert and oriented, no apparent distress Abdomen - Soft, appropriately tender to palpation, non-distended, fundus firm at umbilicus Incision - clean, dry and intact; no erythema or induration, no drainage Extremities - no edema, negative Yvette's bilaterally Assessment: 1 post-operative day # 1, status post RLTCS/FTD, CPD, macrosomia, hand presentation. Recovering well, hemodynamically stable 2. Acute blood loss anemia Plan: Routine post-operative care. Encourage breast feeding. Encourage ambulation. VTE prophylaxis: SCDs. Ferrous sulfate supplementation. Plan for discharge tomorrow Vitals - Labs Vital Signs - I&O Vital Signs Date Time Temp Pulse Resp B/P (MAP) Pulse Ox O2 Delivery O2 Flow Rate FiO2 05/22/20 08:04 36.9 83 16 107/65 (79) 97 Nasal Cannula 05/22/20 07:48 36.9 05/22/20 02:04 36.9 85 18 121/75 (90) 99 Room Air 05/21/20 22:00 36.7 85 18 117/72 (87) 99 Room Air 05/21/20 21:00 36.5 76 18 102/69 (80) 99 Room Air 05/21/20 20:41 36.5 18 108/64 (79) 99 Room Air 05/21/20 20:26 36.5 18 110/99 (103) 100 Room Air 05/21/20 20:11 36.4 18 101/62 (75) 100 Room Air 05/21/20 19:56 36.6 18 101/36 (57) 100 Room Air 05/21/20 18:45 36.7 91 98 Room Air 05/21/20 18:30 36.7 92 16 126/75 (92) 99 Room Air 05/21/20 16:30 103 141/105 (117) Room Air 05/21/20 16:15 86 136/88 (104) Room Air 05/21/20 16:00 86 132/92 (105) 100 Room Air 05/21/20 15:45 87 16 144/76 (98) 98 Room Air 05/21/20 15:30 36.5 88 149/80 (103) 99 Room Air 05/21/20 15:15 100 143/76 (98) 99 Room Air 05/21/20 15:00 84 130/68 (88) 100 Room Air 05/21/20 14:45 85 129/65 (86) 100 Room Air 05/21/20 14:30 36.3 81 16 124/63 (83) 98 Room Air 05/21/20 14:15 85 129/65 (86) 98 Room Air 05/21/20 14:00 79 132/80 (97) 99 Room Air 05/21/20 13:45 83 97 Room Air 05/21/20 13:30 36.4 85 16 125/75 (92) 100 Room Air 05/21/20 13:15 83 149/76 (100) Room Air 05/21/20 13:00 84 139/74 (95) Room Air 05/21/20 12:45 95 16 135/76 (95) Room Air 05/21/20 12:30 85 119/61 (80) Room Air 05/21/20 12:15 36.6 82 130/65 (86) Room Air 05/21/20 12:00 76 120/67 (84) Room Air I & O 05/22/20 07:00 Intake Total 6050 ml Output Total 1450 ml Balance 4600 ml Labs Laboratory Tests 05/22/20 05:23: White Blood Count 14.2H, Red Blood Count 2.96L, Hemoglobin 8.8L, Hematocrit 27L, Mean Corpuscular Volume 92, Mean Corpuscular Hemoglobin 30, Mean Corpuscular Hemoglobin Concent 32, Red Cell Distribution Width 13.9, Platelet Count 239, Mean Platelet Volume 9.9, Immature Granulocyte % (Auto) 1, Neutrophils (%) (Auto) 82H, Lymphocytes (%) (Auto) 10L, Monocytes (%) (Auto) 7, Eosinophils (%) (Auto) 0, Basophils (%) (Auto) 0, Neutrophils # (Auto) 11.7H, Lymphocytes # (Auto) 1.5, Monocytes # (Auto) 0.9, Eosinophils # (Auto) 0.1, Basophils # (Auto) 0.0, Immature Granulocyte # (Auto) 0.1 ATIF MALONE DO May 22, 2020 11:48
[2020-05-22 16:04] VITALS: BP 115/62
[2020-05-22] MEDS: IBUPROFEN 600 MG (MOTRIN) TAB PO SCH (21:43)
[2020-05-22 21:50] VITALS: BP 123/59
[2020-05-22] MEDS: FERROUS SULF 325 MG (IRON) TAB PO SCH (22:04)
--- NOTE | 2020-05-22 22:40 | NUR ---
Pt laying in bed with eyes closed, s.o. at bedside, denies needs.
--- NOTE | 2020-05-23 01:50 | NUR ---
Pt sleeping in bed at this time, s.o. at bedside.
[2020-05-23 03:40] VITALS: BP 105/57
[2020-05-23] MEDS: IBUPROFEN 600 MG (MOTRIN) TAB PO SCH ×2 (03:41→09:58)
[2020-05-23] MEDS: KETOROLAC 30 MG/ML VIAL IV SCH (03:41)
[2020-05-23 09:00] VITALS: BP 103/65
[2020-05-23] MEDS: DOCUSATE SODIUM 100 MG (COLACE) CAP PO SCH (09:08)
[2020-05-23] MEDS: FERROUS SULF 325 MG (IRON) TAB PO SCH (09:08)
[2020-05-23] MEDS: ACETAMINOPHEN 500 MG TAB (TYLENOL) PO SCH (09:08)
[2020-05-23] MEDS ORDERED: OXC5T PO (11:24)
[2020-05-23] MEDS ORDERED: ACET-93 PO (11:24)
[2020-05-23] MEDS ORDERED: DCS100C PO (11:24)
[2020-05-23] MEDS ORDERED: IBUP-844 PO (11:24)
[2020-05-23] MEDS ORDERED: FERR325T18 PO (11:24)
--- NOTE | 2020-05-23 11:24 | Short Stay Summary ---
Discharge Summary Hospital Course Was the Problem List Reviewed?: No Hospital Course Date of Admission: May 20, 2020 at 18:40 Admission Diagnosis : Family Physician/Provider: Soto Diop MD Date of Discharge: 05/23/20 Discharge Diagnosis: [ ] Hospital Course: [ ] Labs and Pending Lab Test: Home Meds Active Dok (Docusate Sodium) 100 Mg Capsule 100 Mg PO BID Acetaminophen 500 Mg Tablet 1,000 Mg PO Q8HR Oxyir Tablet (Oxycodone HCl) 5 Mg Tab 5 Mg PO Q4HR Ibu (Ibuprofen) 600 Mg Tablet 600 Mg PO Q6H Ferrous Sulfate 325 Mg Tablet 325 Mg PO BID WITH MEALS Discharge Physical Examination Allergies: Coded Allergies: No Known Drug Allergies (Unverified , 11/19/19) Discharge Summary Date of Admission May 20, 2020 at 18:40 Date of Discharge Clinical Quality Measures DVT/VTE Risk/Contraindication: Risk Factor Score Per Nursin RFS Level Per Nursing on Admit: 1=Low/No VTE PPX ATIF MALONE DO May 23, 2020 11:24
--- NOTE | 2020-05-23 11:26 | Discharge Inst-Women's Service ---
Discharge Inst-Women's Serv Depart Medication/Instructions New, Converted or Re-Newed RX: RX on Chart Final Diagnosis failure to dilater macrosomia CPD OT presentation hand presentation acute blood loss anemia Primary section Problems Reviewed?: Yes Consults/Follow Up Additional Follow Up: Yes (1 week for incision chekc with Robert; 6 wk pp exam with Jadon) Activity Activity: Activity as Tolerated Driving Instructions: No Driving for 1 Week NO SMOKING: NO SMOKING Nothing Inside Vagina: No Douching, No [place], No Tampons Diet Discharge Diet: No Restrictions Symptoms to Report to DrAnderson: Swelling Increased, Bleeding Excessive, Pain Increased, Fever Over 101 Degrees F, Vaginal Bleeding Increase, Cramps in Feet or Legs, Lightheadedness, Vaginal Discharge Foul For Any Problems or Questions: Contact Your Physician Skin/Wound Care Infection Signs and Symptoms: Increased Redness, Foul Odor of Wound, Increased Drainage, Skin Itchy or Has a Rash, Increased Swelling, Temperature Above 101 F Operative Area Clean and Dry: Keep Incision Clean/Dry Stitches/[place]/Dermabond: Dermabond Bathing Instructions: ATIF Ramirez DO May 23, 2020 11:26
[2020-05-23 13:30] VITALS: BP 103/65
--- NOTE | 2020-05-23 13:30 | NUR ---
Discharge instructions given - pt verbalizes understanding. To exit via wheelchair - accompanied by Lisha Dominguez RN and Sarbjit
== END 2020-05-23 13:30 | disposition home or self-care (01) | DRG 787 ==
LOC: LDRP 18:40
PROVIDERS: ADMIT Family Medicine; ATTEND Family Medicine
PROC: 10D00Z1 Extraction of Products of Conception, Low, Open Approach (ICD-10-PCS; principal; 2020-05-21 18:55)
DX: O48.0 Post-term pregnancy (principal); D62 Acute posthemorrhagic anemia; O62.0 Primary inadequate contractions; Z3A.41 41 weeks gestation of pregnancy; Z37.0 Single live birth; O33.9 Maternal care for disproportion, unspecified; O32.2XX0 Maternal care for transverse and oblique lie, not applicable or unspecified; O90.81 Anemia of the puerperium; O36.63X0 Maternal care for excessive fetal growth, third trimester, not applicable or unspecified
CPT/HCPCS: 36415; 81000; 85025; 86850; 86900; 86901; 87635; 90707; 90715; 94664